=== PATIENT | male | born 1940 | race Two or more races ===

== ENCOUNTER 2020-12-14 12:04 | Emergency (ER) | payer OTHER ==
[~2020-12-14] VITALS: Ht 172.7 cm; Wt 81.6 kg
[2020-12-14] MEDS ORDERED: JANUMET 50-1,01 EACH (12:16)
[2020-12-14] MEDS ORDERED: ZETIA10 MG (12:16)
== END 2020-12-15 17:35 | disposition home or self-care (01) ==
LOC: ER 12:04
DX: S70.01XA Contusion of right hip, initial encounter (principal); S00.83XA Contusion of other part of head, initial encounter; M79.631 Pain in right forearm; R55 Syncope and collapse; E86.0 Dehydration; F44.89 Other dissociative and conversion disorders; E87.6 Hypokalemia; M54.2 Cervicalgia; N39.0 Urinary tract infection, site not specified; W18.09XA Striking against other object with subsequent fall, initial encounter; Y93.89 Activity, other specified; Y92.018 Other place in single-family (private) house as the place of occurrence of the external cause; Y99.8 Other external cause status